=== PATIENT | male | born 1945 | race Caucasian/White ===

== ENCOUNTER 2016-11-06 18:09 | Inpatient (IN) ==
[2016-11-06] MEDS ORDERED: Aspirin 81 MG TAB.CHEW PO STA (18:24)
--- NOTE | 2016-11-06 18:24 | Emergency Department Note ---
Disposition Clinical Impression: Stroke Qualifiers: CVA mechanism: unspecified Qualified Code(s): I63.9 - Cerebral infarction, unspecified Disposition: Admitted As Inpatient Condition: Fair [facility] Care Provider[facility] - Forms: ED Satisfaction Letter General Adult HPI - General Chief complaint: ED Neuro Symptoms/Deficit Stated complaint: "rule out CVA" Time Seen by Provider: 11/06/16 18:14 Nursing Notes Reviewed: Yes Vital Signs Reviewed: Yes - Related Data Previous Rx's Medication Instructions Recorded Ciprofloxacin OPTH Soln 4 drop RIGHT EYE Q4HR #1 drops 11/09/14 [Ciprofloxacin Opth Soln] Allergies Allergy/AdvReac Type Severity Reaction Status Date / Time atorvastatin AdvReac Fatigued Verified 11/09/14 17:39 celecoxib [From Celebrex] AdvReac Heartburn Verified 11/09/14 17:39 simvastatin AdvReac Fatigued Verified 11/09/14 17:39 Past Medical History - Past Medical History Medical history: Reports: coronary artery disease, DVT, diabetes, hyperlipidemia , hypertension, myocardial infarction Surgical history: Reports: coronary bypass (CABG), other Psychiatric history: Reports: anxiety - Social History Smoking Status: Former smoker Smokeless Tobacco Status: No Alcohol use: Reports: none Drug use: Reports: none Course Vital Signs Temperature 98.0 F 11/06/16 18:11 Pulse Rate 60 11/06/16 18:11 Respiratory Rate 16 11/06/16 18:11 Blood Pressure 134/84 11/06/16 18:11 O2 Sat by Pulse Oximetry 98 11/06/16 18:11 Temperature 98.0 F 11/06/16 18:11 Pulse Rate 60 11/06/16 19:08 Respiratory Rate 16 11/06/16 19:08 Blood Pressure 164/79 11/06/16 19:08 O2 Sat by Pulse Oximetry 99 11/06/16 19:08 Oxygen Delivery Oxygen Delivery Room Air Medical Decision Making - MDM Narrative Medical decision making narrative: I examined this patient and my medical decision-making was reviewed with the Resident Physician. I agree with the documented findings, disposition and treatment plan as described except to the extent set forth below. Patient seen and evaluated with Dr. Azevedo on arrival from EMS from the [place]. He had 3 days of ataxia was seen at the [facility] and he get a CT scan which showed a possible stroke. He has had no history of stroke in the past no other focal neuro deficits he denies any headache or chest pain or shortness of breath. They did a full workup over there he just needs admission neurology and an MRI. When review his chart here speak to neurology and most likely admit. Start him on aspirin here. He is in agreement with plan. [address] [facility] shows normal-sized ventricles there is a subtle low density area in the anterior limb the left internal capsule which was not present on a previous CT they had there that was done on November he also noticed superimposed mild patchy hypodensity in the paraventricular white matter system but it has been there presently there is no signs of intracranial hemorrhage or other abnormalities. [facility] work [facility] the [facility] shows a white count of 9.9 H&H 35 hematocrit 41.4 and a platelet count of 173 urinalysis is negative. Troponins negative his electrolytes are unremarkable suffer glucose 136 PT PTT is drawn B and creatinines done as lactate is normal. 1923 hrs.: Spoke with neurology and they are happy to see the patient and consult with admission to hospitalist.
--- NOTE | 2016-11-06 19:02 | Emergency Department Note ---
Disposition Clinical Impression: Stroke Qualifiers: CVA mechanism: unspecified Qualified Code(s): I63.9 - Cerebral infarction, unspecified Disposition: Admitted As Inpatient Condition: Fair [facility]errals: [facility] [Primary Care Provider] - Forms: ED Satisfaction Letter General Adult HPI - General Chief complaint: ED Neuro Symptoms/Deficit Stated complaint: "rule out CVA" Time Seen by Provider: 11/06/16 18:14 Source: EMS Limitations: no limitations Nursing Notes Reviewed: Yes Vital Signs Reviewed: Yes - History of Present Illness HPI Narrative: Patient here for evaluation and further workup possible stroke. [facility] to abnormal CT scan showing subtle new low density in the anterior limb of the left internal capsule is suspicious for a small age indeterminate infarct. He has had subtle neurologic symptoms including dizziness that has been going on since Wednesday. He describes a feeling as if things are spinning and feeling unsteady. He has had intermittent vision problems and on exam has nystagmus with fast beating to the right. No other clinical focal focal neurologic findings. White count of 9.9. Hemoglobin 13.5. Platelets 173. Urinalysis unremarkable. Patient has a negative troponin as well as normal electrolytes and liver function. Lactic acid normal. Please see Dr. Angulo's note for further dictation of [facility] chart. Pain Scale: 0 - Related Data Previous Rx's Medication Instructions Recorded Ciprofloxacin OPTH Soln 4 drop RIGHT EYE Q4HR #1 drops 11/09/14 [Ciprofloxacin Opth Soln] Allergies Allergy/AdvReac Type Severity Reaction Status Date / Time atorvastatin AdvReac Fatigued Verified 11/09/14 17:39 celecoxib [From Celebrex] AdvReac Heartburn Verified 11/09/14 17:39 simvastatin AdvReac Fatigued Verified 11/09/14 17:39 All systems ED: reviewed and negative except as stated. Constitutional: Denies: fever, chills, weakness Eyes: Reports: vision change Cardiovascular: Denies: chest pain, palpitations Respiratory: Denies: cough, dyspnea Gastrointestinal: Denies: abdominal pain, nausea Musculoskeletal: Denies: back pain, neck pain Integumentary: Denies: rash, abrasion Neurological: Reports: abnormal gait, vertigo Psychiatric: Denies: anxiety, depression Endocrine: Denies: fatigue Hematological/Lymphatic: Denies: easy bleeding Past Medical History - Past Medical History Medical history: Reports: coronary artery disease, DVT, diabetes, hyperlipidemia , hypertension, myocardial infarction Surgical history: Reports: coronary bypass (CABG), other Psychiatric history: Reports: anxiety - Social History Smoking Status: Former smoker Smokeless Tobacco Status: No Alcohol use: Reports: none Drug use: Reports: none Physical Exam General appearance: NAD, conversant Eyes: anicteric sclerae, moist conjunctivae; PERRL HENT: Atraumatic; oropharynx clear with moist mucous membranes and no mucosal ulcerations Neck: Normal inspection; Trachea midline; FROM, supple Lungs: CTA, with normal respiratory effort and no intercostal retractions CV: RRR, no MRGs Abdomen: Soft, non-tender; no rebound or gaurding Extremities: No peripheral edema or extremity lymphadenopathy Skin: Normal temperature; no rash, ulcers or lesions Psych: Appropriate mood and affect Neuro: alert and oriented to person, place and time - General Limitations: no limitations General appearance: alert - Expanded Neurological Exam Patient oriented to: Present: person, place Speech: Present: fluid speech Cranial nerves: EOM function (II, III, IV, ): Abnormal Right (Nystagmus in the right eye that is lateral beating), facial sensation (V): Normal, facial palsy (VII): Normal, gag reflex (IX): Normal, spinal accessory function (XI): Normal, tongue deviation (XII): Normal Cerebellar function: finger to nose: Normal, heel to haider: Normal Motor strength - LUE: 5/5 Motor strength - RUE: 5/5 Motor strength - LLE: 5/5 Motor strength - RLE: 5/5 Sensory exam upper extremity: light touch: Normal Sensory exam lower extremity: light touch: Normal Coma Scale Eye Opening: Spontaneous Coma Scale Motor Response: Obeys Commands Coma Scale Verbal Response: Oriented Coma Scale Total: 15 - Psychiatric Psychiatric exam: Present: normal affect, normal mood - Skin Skin exam: Present: warm, dry, intact Course - Consultations Consultation #1: Discussed with Dr. De Leon. Patient can be further observed and worked up in our facility. Consultation #2: Discussed with Dr. Koroma. Patient accepted for admission. Vital Signs Temperature 98.0 F 11/06/16 18:11 Pulse Rate 60 11/06/16 18:11 Respiratory Rate 16 11/06/16 18:11 Blood Pressure 134/84 11/06/16 18:11 O2 Sat by Pulse Oximetry 98 11/06/16 18:11 Temperature 98.0 F 11/06/16 18:11 Pulse Rate 60 11/06/16 19:08 Respiratory Rate 16 11/06/16 19:08 Blood Pressure 164/79 11/06/16 19:08 O2 Sat by Pulse Oximetry 99 11/06/16 19:08 Oxygen Delivery Oxygen Delivery Room Air
[2016-11-06] MEDS: Gabapentin 300 MG CAPSULE PO SCH (23:30)
--- NOTE | 2016-11-06 23:49 | Internal Med History&Physical ---
<Richard Romero - Last Filed: 11/07/16 02:09> Date of Encounter: 11/07/16 Time of Encounter: 23:45 Assessment and Plan (1) Stroke Current visit: Yes Status: Acute 71 y/o male on wednesday had Dawkins's with four bouts of loose stools and one bout of self induced vomiting due to nausea with this had symptoms of dizziness described as unsteadiness on his feet and lightheadedness. Patient is a comes from the [place] CT scan shows subtle new low density in the anterior limb of the left internal capsule Neurological exam: Nystagmus with fast beating to the right, positive Romberg's test, decreased sensation to bilateral lower extremity EKG ventricularly paced rhythm with no changes to previous. Plan: Unable to obtain MRI due to pacemaker/AICD Aspirin, start rosuvastatin and aggronox PT/OT/speech consult Neurology consultation Echocardiogram, bilateral carotid Dopplers Patient has a history of atrial fibrillation on xeralto, if determined to cardioembolic stroke will need to change anticoagulation Qualifiers: CVA mechanism: unspecified Qualified Code(s): I63.9 - Cerebral infarction, unspecified (2) Systolic congestive heart failure Current visit: Yes Status: Acute Patient states he has history of 5 myocardial infarctions, ventricular tachycardia, atrial fibrillation States his last EF is 30%. Patient status post pacemaker/AICD Plan: Continue aspirin, start rosuvastatin, sotalol, Lasix, lisinopril, aldactone Qualifiers: Congestive heart failure chronicity: chronic Qualified Code(s): I50.22 - Chronic systolic (congestive) heart failure (3) Atrial fibrillation Current visit: Yes Status: Acute History of atrial fibrillation on xeralto and sotalol EKG shows ventricularly paced rhythm, rate controlled Plan: Continue xeralto, sotalol. May need to change anticoagulation if stroke determined to be cardioembolic. Qualifiers: Atrial fibrillation type: chronic Qualified Code(s): I48.2 - Chronic atrial fibrillation (4) Essential hypertension Current visit: Yes Status: Acute Controlled Continue home medication of lisinopril (5) DVT prophylaxis Current visit: Yes Status: Acute on xeralto for afib (6) Diabetes mellitus Current visit: Yes Status: Acute Patient states he is a history of diabetes mellitus. Unclear last hemoglobin A1c as [facility] Current glucose is 108. Plan cardiac ADA diet with low dose sliding scale insulin. Qualifiers: Diabetes mellitus type: type 2 Diabetes mellitus complication status: with unspecified complications Diabetes mellitus joint terminal attack controller insulin use: without chcf use Qualified Code(s): E11.8 - Type 2 diabetes mellitus with unspecified complications Internal Medicine - H&P: HPI Chief complaint: unsteadiness Admitted From: Home Plans for Post Hospital Care: Home History of present illness: Mr. Sinclair is a 71 year old male presents from [place] for evaluation of stroke. Patient's chief complaint is unsteadiness. Last Wednesday after eating Dawkins' s he had 4 bouts of diarrhea and one bout of self-induced nausea. During this time he developed symptoms of dizziness described as unsteady on feet, lightheadedness. Reports blurry vision on the right eye that started today and persists. Denies facial drooping, unilateral numbness, unilateral weakness, fall, passing out, trauma to the head. Patient denies chest pain, shortness of breath, fever, chills, loss of bowel or bladder function. Patient does not have these symptoms when sitting down but only with standing up and gait. At the [place] CT scan showed a subtle new low density in the anterior limb of the left internal capsule. In the ER patient was found to have nystagmus with fast beating to the right. Dr. Hilario was notified and patient is admitted for further evaluation. Past Med Surg Social Fam HX - Past Medical History Medical history: atrial fibrillation, coronary artery disease, DVT, diabetes, hyperlipidemia, hypertension, myocardial infarction (5) Psychiatric history: anxiety - Past Surgical History Surgical History: coronary bypass (CABG), other - Social History Smoking Status: Former smoker (Quit 20 years ago with [id number] history) Smokeless Tobacco Status: No Alcohol use: none Drug use: none Occupational status: retired Activity Level: Independent ambulation - Family History Mother Adopted: [place]: [place] Family Member Ethnicity: Non- Living Status: Age at : 79 Cause of : KIDNEY FAILURE Hx Family Cardiac Disorders: Yes (HTN) Hx Family Respiratory Disorders: No Hx Family Cancer: No Hx Family GI Disorders: No Hx Family Genitourinary Disorders: No Hx Family Endocrine Disorder: Yes (DM) Hx Family Musculoskeletal Disorders: No Hx Family Neuromuscular Disorders: No Hx Family Neurologic Disorders: Yes (CVA) Hx Family HEENT Disorders: No Hx Family Autoimmune Disorders: No Hx Family Reproductive Disorders: No Hx Family Psychosocial Disorders: No Hx Family Medical Disorders: No Father Living Status: Hx Family Cardiac Disorders: Yes (Heart disease coronary artery disease) Internal Medicine - H&P: Meds Aspirin [Lo-Dose Aspirin EC] 81 mg PO DAILY 11/06/16 [History] Cetirizine HCl [All Day Allergy] 10 mg PO DAILY 11/06/16 [History] Cholecalciferol (Vitamin D3) [Vitamin D] 2,000 unit PO DAILY 11/06/16 [History] Furosemide [Lasix] 40 mg PO DAILY 11/06/16 [History] Gabapentin [Neurontin] 600 mg PO QID 11/06/16 [History] Lidocaine [Lidocare] 1 patch TP Q12H 11/06/16 [History] Lisinopril 10 mg PO DAILY 11/06/16 [History] Lisinopril [Zestril] 10 mg PO DAILY 11/06/16 [History] Nitroglycerin [Nitrostat] 0.4 mg SL AD PRN 11/06/16 [History] Ondansetron HCl [Zofran] 4 mg PO TID PRN 11/06/16 [History] Oxycodone HCl/Acetaminophen [Percocet 5-325 mg Tablet] 1 tab PO Q6H PRN [History] Propylene Glycol/Peg 400 [Kro Lubricating Rlf 0.3-0.4%] 1 drop OP QID 11/06/16 [ History] Rivaroxaban [Xarelto] 20 mg PO DAILY 11/06/16 [History] Sotalol 180 mg PO BID 11/06/16 [History] Sotalol [Betapace] 80 mg PO Q12HR 11/06/16 [History] Spironolactone [Aldactone] 12.5 mg PO DAILY 11/06/16 [History] 3 Allergy/AdvReac Type Severity Reaction Status Date / Time atorvastatin AdvReac Fatigued Verified 11/09/14 17:39 celecoxib [From Celebrex] AdvReac Heartburn Verified 11/09/14 17:39 simvastatin AdvReac Fatigued Verified 11/09/14 17:39 All Systems PM: A 10-system review of systems was performed and is negative for pertinent findings except as documented above in the HPI. Review of systems: Constitutional: Denies fever, chills HEENT: Denies headache, vision changes, neck pain, sore throat, rhinorrhea Heart: Denies chest pain palpitations Lungs: Denies shortness of breath cough Abdomen: Reports lower abdominal soreness that is relieved by bowel movements, vomiting, diarrhea Back: Denies back pain Kidney: Denies dysuria, hematuria Skin: Denies open wounds or sores or rash Extremities: Lower extremity swelling, denies pain Neuro: Reports lower extremity neuropathy, denies tingling - Constitutional Vitals: Temp Pulse Resp BP Pulse Ox 97.9 F 60 16 144/76 96 11/06/16 22:58 11/06/16 22:58 11/06/16 22:58 11/06/16 22:58 11/06/16 22:58 - Other Additional findings: General: Pleasant, without distress HEENT: Head atraumatic, normocephalic, EOMI, PERRLA, neck nontender to palpation , absent Lymphadenopathy, Moist Mucous Membranes, Heart: Regular rate and rhythm with right second intercostal systolic murmur Lungs: Clear to auscultation bilaterally Abdomen: Soft nontender, nondistended positive bowel sounds Extremities: Absent pedal edema, Skin: Warm and dry Neuro: Cranial nerves II through XII intact except for nystagmus with right gaze , decreased sensation to touch and lower feet bilaterally strength upper and lower extremity 5/5, alert oriented 3, positive Romberg's test Vascular: Pedal and radial pulses 2 out of 4 Internal Med - H&P Results - Labs CBC & Chem 7: 11/07/16 00:39 11/07/16 00:39 <Tino Baker - Last Filed: 11/07/16 03:37> Date of Encounter: 11/06/16 Internal Medicine - H&P: HPI History of present illness: Mr. Sinclair is a 71 year old male All Systems PM: A 10-system review of systems was performed and is negative for pertinent findings except as documented above in the HPI. - Constitutional Vitals: Temp Pulse Resp BP Pulse Ox 98.1 F 59 16 106/64 95 11/07/16 02:52 11/07/16 02:52 11/07/16 02:52 11/07/16 02:52 11/07/16 02:52 Internal Med - H&P Results - Labs CBC & Chem 7: 11/07/16 00:39 11/07/16 00:39 Labs: Short CBC 11/07/16 Range/Units 00:39 WBC 8.4 (4.3-11.1) K/mcL Hgb 12.4 L (12.9-16.9) g/dL Hct 39.2 (37.5-50.1) % Plt Count 162 (140-400) K/mcL Neutrophils # 5.5 (1.6-8.9) K/mcL BMP 11/07/16 00:39 Sodium 137 Potassium 4.1 Chloride 102 Carbon Dioxide 27 BUN 17 Creatinine 0.81 Glucose 161 H Calcium 9.4 - Impressions reviewed non contrast head [facility] - Attending Attestation Date of encounter is 11/06/2016 and NOT 11/07/16 I personally interviewed and examined this patient and my medical decision- making was reviewed with the Resident Physician. I agree with the documented findings, disposition and treatment plan as described. Due to his ICD's incompatibility with MRI we will repeat the head CT 24 hours from the initial one. Tino Baker MD, MPH Hospitalist
[2016-11-07] MEDS ORDERED: Dextrose Gel 15 GM PO PRN ×2 (00:06)
[2016-11-07] MEDS ORDERED: D5% in Water 1,000 ML IVC PRN (00:06)
[2016-11-07] MEDS ORDERED: *HR* Dextrose 50 % in Water (Syg) 50 ML SYRINGE IVP PRN (00:06)
[2016-11-07 00:55] LABS: Basophils % 0.4 %; Eosinophils # 0.1 K/mcL (0.0-0.6); Eosinophils % 1.4 %; Hematocrit 39.2 % (37.5-50.1); Hemoglobin 12.4 g/dL (12.9-16.9); Immature Granulocytes % 0.5 % (0-4); Lymphocytes # 2.2 K/mcL (0.6-4.6); Lymphocytes % 26.1 %; Mean Corpuscular HGB Conc 31.6 g/dL (31.6-35.5); Mean Corpuscular Hemoglobin 28.4 pg (28.0-33.3); Mean Corpuscular Volume 89.7 fL (83.0-100.0); Mean Platelet Volume 9.7 fL (9.4-12.4); Monocytes # 0.5 K/mcL (0.0-1.3); Neutrophils # 5.5 K/mcL (1.6-8.9); Platelet Count 162 K/mcL (140-400); Red Blood Count 4.37 M/mcL (4.19-5.50); Red Cell Distribution Width 13.9 % (11.5-14.5); Segmented Neutrophils % 65.6 %
[2016-11-07 01:05] LABS: INR 1.3; Prothrombin Time 13.8 Seconds (9.4-12.1)
[2016-11-07 01:07] LABS: Hemoglobin A1C 5.8 %
[2016-11-07 01:08] LABS: Activated Partial Thrombo Time 28.3 Seconds (26.0-36.0)
[2016-11-07 01:09] LABS: BUN/Creatinine Ratio 21 (6-26); Blood Urea Nitrogen 17 mg/dL (8-26); Calcium 9.4 mg/dL (8.6-10.8); Carbon Dioxide 27 mEq/L (19-29); Chloride 102 mEq/L (98-109); Chol/HDL Ratio 4.9 (0-4.9); Cholesterol 173 mg/dL (< 200); Glucose 161 mg/dL (70-99); HDL Cholesterol 35 mg/dL (40-59); LDL Cholesterol,Calculated 94 mg/dL (0-99); Osmolality,Calculated 289 (280-300); Potassium 4.1 mEq/L (3.5-4.5); Sodium 137 mEq/L (136-145); Triglycerides 220 mg/dL (< 150); eGFR For African Americans > 60 (> 60); eGFR For Non-African Americans > 60 (> 60)
[2016-11-07] MEDS: Furosemide 40 MG TABLET PO SCH (08:13)
[2016-11-07] MEDS: Spironolactone 25 MG TABLET PO SCH (08:13)
[2016-11-07] MEDS: Gabapentin 300 MG CAPSULE PO SCH ×4 (08:15→21:20)
[2016-11-07] MEDS: *HR* Rivaroxaban 10 MG TABLET PO SCH (08:16)
[2016-11-07] MEDS: Insulin LISPRO 300 UNITS/3 ML VIAL SQ SCH ×3 (08:16→17:43)
[2016-11-07] MEDS ORDERED: Aspirin Enteric Coated 81 MG Tablet PO SCH (09:00)
--- NOTE | 2016-11-07 15:57 | Internal Med Progress Note ---
Date of Encounter: 11/07/16 Time of Encounter: 15:56 - Assessment and plan (1) Stroke Current Visit: Yes Status: Acute Qualifiers: CVA mechanism: unspecified Qualified Code(s): I63.9 - Cerebral infarction, unspecified (2) Atrial fibrillation Current Visit: Yes Status: Acute Qualifiers: Atrial fibrillation type: chronic Qualified Code(s): I48.2 - Chronic atrial fibrillation (3) Essential hypertension Current Visit: Yes Status: Acute (4) DVT prophylaxis Current Visit: Yes Status: Acute (5) Diabetes mellitus Current Visit: Yes Status: Acute Qualifiers: Diabetes mellitus type: type 2 Diabetes mellitus complication status: with unspecified complications Diabetes mellitus senior living insulin use: without senior living use Qualified Code(s): E11.8 - Type 2 diabetes mellitus with unspecified complications - Subjective Interval history: Mr. Sinclair is a 71 year old male presents from [place] for evaluation of stroke. Patient's chief complaint is unsteadiness. Last Wednesday after eating Dawkins' s he had 4 bouts of diarrhea and one bout of self-induced nausea. During this time he developed symptoms of dizziness described as unsteady on feet, lightheadedness. Reports blurry vision on the right eye that started today and persists. Denies facial drooping, unilateral numbness, unilateral weakness, fall, passing out, trauma to the head. Patient denies chest pain, shortness of breath, fever, chills, loss of bowel or bladder function. Patient does not have these symptoms when sitting down but only with standing up and gait[facility] scan showed a subtle new low density in the anterior limb of the left internal capsule. In the ER patient was found to have nystagmus with fast beating to the right. Dr. Hilario was notified and patient is admitted for further evaluation. Awaiting urology consult PTOT evaluation echocardiogram and ultrasound carotid results. - Constitutional Vitals: Temp Pulse Resp BP Pulse Ox 97.4 F L 60 15 130/72 97 11/07/16 15:33 11/07/16 15:33 11/07/16 15:33 11/07/16 15:33 11/07/16 15:33 - Head Head exam: Present: atraumatic, normocephalic - Eye Eye exam: Present: PERRL, conjuntiva pink, sclera anicteric Pupils: Present: PERRL - Neck Neck exam general surgery: Present: supple, trachea midline. Absent: lymphadenopathy - Respiratory Respiratory exam: Present: CTAB. Absent: accessory muscle use, rales, rhonchi, wheezes - Cardiovascular Cardiovascular exam: Present: RRR, +S1, +S2. Absent: diastolic murmur, gallop, rubs, systolic murmur - GI/Abdominal GI/Abdominal exam: Present: normal bowel sounds, soft, no peritoneal signs. Absent: distended, tenderness - Extremities Exam Extremities exam: Present: warm, radial pulses palpable and symmetrical. Absent : calf tenderness, cyanotic, pedal edema - Neurological Exam Neurological exam: Present: CN II-XII intact, oriented X3, no focal deficits. Absent: pronater drift, facial droop, speech deficit - Skin Skin exam: Present: dry, intact Internal Medicine: Result - Labs CBC & Chem 7: 11/07/16 00:39 11/07/16 00:39 Labs: Short CBC 11/07/16 Range/Units 00:39 WBC 8.4 (4.3-11.1) K/mcL Hgb 12.4 L (12.9-16.9) g/dL Hct 39.2 (37.5-50.1) % Plt Count 162 (140-400) K/mcL Neutrophils # 5.5 (1.6-8.9) K/mcL BMP 11/07/16 00:39 Sodium 137 Potassium 4.1 Chloride 102 Carbon Dioxide 27 BUN 17 Creatinine 0.81 Glucose 161 H Calcium 9.4 - ABG Interpretation ABG results: PT/INR, D-dimer PT 13.8 Seconds (9.4-12.1) H 11/07/16 00:39 Consult Discharge Plan - Plan [facility]errals: [facility] [Primary Care Provider] -
[2016-11-07] MEDS ORDERED: Insulin LISPRO 300 UNITS/3 ML VIAL SQ SCH (21:00)
[2016-11-08] MEDS: *HR* Rivaroxaban 10 MG TABLET PO SCH (08:58)
[2016-11-08] MEDS: Spironolactone 25 MG TABLET PO SCH (08:59)
[2016-11-08] MEDS: Insulin LISPRO 300 UNITS/3 ML VIAL SQ SCH ×3 (08:59→17:15)
[2016-11-08] MEDS: Furosemide 40 MG TABLET PO SCH (08:59)
[2016-11-08] MEDS: Gabapentin 300 MG CAPSULE PO SCH ×3 (08:59→17:14)
[2016-11-08] MEDS ORDERED: Perflutren Lipid Microsphere 1.3 ML in 0.9 % Sodium Chloride 8.7 ML IVP ONE (10:12)
--- NOTE | 2016-11-08 11:00 | Neurology - Consult Note ---
Date of Encounter: 11/08/16 Time of Encounter: 10:58 Assessment and Plan (1) TIA (transient ischemic attack) Current Visit: Yes Status: Acute I reviewed the CT of head personally and i did not notice obvious signs of lacunar infarct, which would be difficult to be visualize on CT of head if it is small or not fully developed. Considering the fact he already had symptoms more than 24 hours it is my opinion that this does not represent a new lacunar infarct and he currently has no focal neurological deficit. Acute infarct is less likely especially considering that he is currently anticoagulated with Xarelto. Agree with getting carotid artery duplex and echocardiography. Patient can not get MRI of brain due to pacer placement. if carotid artery duplex and echocardiography returns unremarkable i would recommend no further testing. Qualifiers: Transient cerebral ischemia type: unspecified Qualified Code(s): G45.9 - Transient cerebral ischemic attack, unspecified History of Present Illness Chief complaint: dizziness, balance diffiulty and visual changes HPI: Mr. Sinclair is a 71 year old male with PMH significant for HTN, atrial fibrillation, DM, who developed acute onset of dizziness, balance difficulty blurry vision after having recurrent diarrhea. Patient states that he ate at [employer] Wednesday night and after that he developed loose stool x4 and developed blurry vision both eyes and some balance difficulty. Was dizzy as well. He went to [place] two days ago and had CT of head which reported possible lacunar infarct at the left GB. Patient denies focal weakness. the visual difficulty improved a lot but he still feel little blurry when looking at mid ranged object. No tinntus. Had hip surgery september/2016 and has been having difficulty walking. Has been receiving PT at home and is eager to get back on PT. Past Med Surg Social Fam HX - Past Medical History Medical history: atrial fibrillation, coronary artery disease, DVT, diabetes, hyperlipidemia, hypertension, myocardial infarction (5) Psychiatric history: anxiety - Past Surgical History Surgical History: coronary bypass (CABG), other - Social History Smoking Status: Former smoker (Quit 20 years ago with 75-[id number] history) Smokeless Tobacco Status: No Alcohol use: none Drug use: none - Family History Mother Adopted: [place]: vanessa Family Member Ethnicity: Non- Living Status: Age at : 77 Cause of : KIDNEY FAILURE Hx Family Cardiac Disorders: Yes (HTN) Hx Family Respiratory Disorders: No Hx Family Cancer: No Hx Family GI Disorders: No Hx Family Genitourinary Disorders: No Hx Family Endocrine Disorder: Yes (DM) Hx Family Musculoskeletal Disorders: No Hx Family Neuromuscular Disorders: No Hx Family Neurologic Disorders: Yes (CVA) Hx Family HEENT Disorders: No Hx Family Autoimmune Disorders: No Hx Family Reproductive Disorders: No Hx Family Psychosocial Disorders: No Hx Family Medical Disorders: No Father Living Status: Hx Family Cardiac Disorders: Yes (Heart disease coronary artery disease) Medications and Allergies Aspirin [Lo-Dose Aspirin EC] 81 mg PO DAILY 11/06/16 [History] Cetirizine HCl [All Day Allergy] 10 mg PO DAILY 11/06/16 [History] Cholecalciferol (Vitamin D3) [Vitamin D] 2,000 unit PO DAILY 11/06/16 [History] Furosemide [Lasix] 40 mg PO DAILY 11/06/16 [History] Gabapentin [Neurontin] 600 mg PO QID 11/06/16 [History] Lidocaine [Lidocare] 1 patch TP Q12H 11/06/16 [History] Lisinopril 10 mg PO DAILY 11/06/16 [History] Lisinopril [Zestril] 10 mg PO DAILY 11/06/16 [History] Nitroglycerin [Nitrostat] 0.4 mg SL AD PRN 11/06/16 [History] Ondansetron HCl [Zofran] 4 mg PO TID PRN 11/06/16 [History] Oxycodone HCl/Acetaminophen [Percocet 5-325 mg Tablet] 1 tab PO Q6H PRN [History] Propylene Glycol/Peg 400 [Kro Lubricating Rlf 0.3-0.4%] 1 drop OP QID 11/06/16 [ History] Rivaroxaban [Xarelto] 20 mg PO DAILY 11/06/16 [History] Sotalol 180 mg PO BID 11/06/16 [History] Sotalol [Betapace] 80 mg PO Q12HR 11/06/16 [History] Spironolactone [Aldactone] 12.5 mg PO DAILY 11/06/16 [History] 3 Allergy/AdvReac Type Severity Reaction Status Date / Time atorvastatin AdvReac Fatigued Verified 11/09/14 17:39 celecoxib [From Celebrex] AdvReac Heartburn Verified 11/09/14 17:39 simvastatin AdvReac Fatigued Verified 11/09/14 17:39 All Systems: A 10-system review of systems was performed and is negative for pertinent findings except as documented above in the HPI. Physical Examination - Vital Signs Vital Signs: Initial Vital Signs Temp Pulse Resp BP Pulse Ox 98.0 F 60 16 134/84 98 11/06/16 18:11 11/06/16 18:11 11/06/16 18:11 11/06/16 18:11 11/06/16 18:11 - Constitutional General appearance: comfortable - Neurologic Sensorimotor examination: intact Detailed motor examination: grossly full strength in all extremities Motor examination - right side: 5/5: deltoids, biceps, triceps, wrist flexion, wrist extension, procedure rn, hip flexors, tibialis Anterior, quadriceps, toe extension (EHL), plantarflexion Motor examination - left side: 5/5: deltoids, biceps, triceps, wrist flexion, wrist extension, hip flexors, procedure rn, quadriceps, tibialis Anterior, toe extension (EHL), plantarflexion Detailed sensory examination: intact Posture: other Reflex and gait examination: other (Gait is abnormal in that he walks small steps to the right leg, due to hip problems. Able to walk without assisstance) Mental Status Examination: awake, alert, oriented to person, oriented to place, oriented to time, follows commands appropriately, answers questions appropriately, no agnosia, no aphasia, no aproxia Cranial nerve examination: PERRL, EOMI, visual powell intact, corneal reflexes brisk symmetrically, sensory to face intact, mastication intact, no facial asymmetry is present, no dysarthria, hearing is intact symmetrically, soft palate elevates bilaterally upon phonation, gag reflex intact, flexes SCM and trapezius muscles symmetrically with full power, tongue protrudes midline, no atrophy or facial fasiculations present Results - Laboratory Findings CBC and BMP: 11/07/16 00:39 11/07/16 00:39 Abnormal lab findings: Abnormal lab results Hgb 12.4 g/dL (12.9-16.9) L 11/07/16 00:39 PT 13.8 Seconds (9.4-12.1) H 11/07/16 00:39 Glucose 161 mg/dL (70-99) H 11/07/16 00:39 POC Glucose 145 (58-89) H 11/07/16 20:29 Hemoglobin A1c 5.8 % (-5.6) H 11/07/16 00:39 Triglycerides 220 mg/dL (< 150) H 11/07/16 00:39 VLDL Cholesterol, Calc 44 mg/dL (< 31) H 11/07/16 00:39 HDL Cholesterol 35 mg/dL (40-59) L 11/07/16 00:39 Consult Discharge Plan - Plan [facility]: [facility] [Primary Care Provider[facility] -
[2016-11-08 11:05] VITALS: BP 114/73
--- NOTE | 2016-11-08 15:26 | Discharge Summary ---
Date of Encounter: 11/08/16 Time of Encounter: 15:21 - Discharge Diagnosis (1) Stroke Priority: Primary Status: Acute Qualifiers: CVA mechanism: unspecified Qualified Code(s): I63.9 - Cerebral infarction, unspecified (2) Atrial fibrillation Priority: Secondary Status: Acute Qualifiers: Atrial fibrillation type: chronic Qualified Code(s): I48.2 - Chronic atrial fibrillation (3) Essential hypertension Priority: Secondary Status: Acute (4) Diabetes mellitus Priority: Secondary Status: Acute Qualifiers: Diabetes mellitus type: type 2 Diabetes mellitus complication status: with unspecified complications Diabetes mellitus dedicated intermodal truck driver insulin use: without mcc use Qualified Code(s): E11.8 - Type 2 diabetes mellitus with unspecified complications (5) DVT prophylaxis Priority: Secondary Status: Acute - Discharge Medications Prescriptions: Aspirin/Dipyridamole 25/200 MG [Aggrenox 25mg-200mg] 1 cap PO BID #30 Home Medications: Aspirin [Lo-Dose Aspirin EC] 81 mg PO DAILY 11/06/16 [History] Cetirizine HCl [All Day Allergy] 10 mg PO DAILY 11/06/16 [History] Cholecalciferol (Vitamin D3) [Vitamin D3] 2,000 unit PO DAILY 11/06/16 [History] Furosemide [Lasix] 40 mg PO DAILY 11/06/16 [History] Gabapentin [Neurontin] 600 mg PO QID 11/06/16 [History] Lidocaine [Lidocare] 1 patch TP Q12H 11/06/16 [History] Lisinopril 10 mg PO DAILY 11/06/16 [History] Lisinopril [Zestril] 10 mg PO DAILY 11/06/16 [History] Nitroglycerin [Nitrostat] 0.4 mg SL AD PRN 11/06/16 [History] Ondansetron HCl [Zofran] 4 mg PO TID PRN 11/06/16 [History] Oxycodone HCl/Acetaminophen [Percocet 5-325 mg Tablet] 1 tab PO Q6H PRN [History] Propylene Glycol/Peg 400 [Kro Lubricating Rlf 0.3-0.4%] 1 drop OP QID 11/06/16 [ History] Rivaroxaban [Xarelto] 20 mg PO DAILY 11/06/16 [History] Sotalol 180 mg PO BID 11/06/16 [History] Sotalol [Betapace] 80 mg PO Q12HR 11/06/16 [History] Spironolactone [Aldactone] 12.5 mg PO DAILY 11/06/16 [History] Aspirin/Dipyridamole 25/200 MG [Aggrenox 25mg-200mg] 1 cap PO BID #30 11/08/16 [Rx] Allergies/Adverse Reactions: 3 Allergy/AdvReac Type Severity Reaction Status Date / Time atorvastatin AdvReac Fatigued Verified 11/09/14 17:39 celecoxib [From Celebrex] AdvReac Heartburn Verified 11/09/14 17:39 simvastatin AdvReac Fatigued Verified 11/09/14 17:39 Procedures/tests Complete & Pending: Procedures Performed prior 72 hours Category Date Time Status CTA Head wo/w contrast [CT angio head wo/w con] [CT] Cat Scan 11/07/16 13:00 Completed Routine EV carotid duplex imaging BI Routine Y 11/08/16 00:04 Completed EV echocardiogram Routine Y 11/08/16 15:18 Ordered EV echocardiogram w enhance Routine Y 11/08/16 00:04 Completed Date of admission: 11/06/16 20:38 [facility] care physician: [facility] Consults: 11/06/16 22:47 Consult to Occupational Therapy [CONS] Routine Comment: Evaluate, develop and implement POC Reason for Consult: suspected stroke Consult to Physical Therapy [CONS] Routine Comment: Evaluate, develop and implement POC Reason for Consult: suspected stroke 11/06/16 22:48 Consult to Speech Therapy [CONS] Routine Comment: Evaluate, develop and implement POC Reason for Consult: suspected stroke Call Completed: No 11/07/16 15:53 Consult to Neurology [CONS] Routine Consulting Provider: [facility] Reason for Consult: CVA Time Notified: 15:54 Call Completed: No Discharging clinician: Dinah Montesinos Anticipated date of discharge: 11/08/16 - Patient Status Disposition: Home, Self-Care Condition: Fair Overall status at discharge: patient is progressing back to baseline - Discharge Instructions Follow Up With: [facility] [Primary Care Provider] - - Diet and Activity Activity: resume usual activities as tolerated Diet: advance to your usual diet, low fat, low cholesterol, low salt diet Hospital course: Mr. Sinclair is a 71 year old male presents from [place] for evaluation of stroke. Patient's chief complaint is unsteadiness. Last Wednesday after eating [employer] he had 4 bouts of diarrhea and one bout of self-induced nausea. During this time he developed symptoms of dizziness described as unsteady on feet, lightheadedness. Reports blurry vision on the right eye that started today and persists. Denies facial drooping, unilateral numbness, unilateral weakness, fall, passing out, trauma to the head. Patient denies chest pain, shortness of breath, fever, chills, loss of bowel or bladder function. Patient does not have these symptoms when sitting down but only with standing up and gait. [facility] scan showed a subtle new low density in the anterior limb of the left internal capsule. In the ER patient was found to have nystagmus with fast beating to the right. Dr. Hilario was notified and patient is admitted for further evaluation. A CTA was done and it did not show any stroke. We are awaiting echocardiogram and ultrasound carotid. Aggrenox will be added to the aspirin. Patient states that he is not on Xarelto anymore. Neurology recommends to let patient go home if US carotid is negative. - Time Spent with Patient Total time spent providing and/or coordinating discharge services: Greater than 30 minutes - Constitutional Vitals: Temp Pulse Resp BP Pulse Ox 97.5 F L 61 16 114/73 97 11/08/16 11:04 11/08/16 11:04 11/08/16 11:04 11/08/16 11:04 11/08/16 11:04 - Head Head exam: Present: atraumatic, normocephalic - Eye Eye exam: Present: PERRL, conjuntiva pink, sclera anicteric Pupils: Present: PERRL - Neck Neck exam general surgery: Present: supple, trachea midline. Absent: lymphadenopathy - Respiratory Respiratory exam: Present: CTAB. Absent: accessory muscle use, rales, rhonchi, wheezes - Cardiovascular Cardiovascular exam: Present: RRR, +S1, +S2. Absent: diastolic murmur, gallop, rubs, systolic murmur - GI/Abdominal GI/Abdominal exam: Present: normal bowel sounds, soft, no peritoneal signs. Absent: distended, tenderness - Extremities Exam Extremities exam: Present: warm, radial pulses palpable and symmetrical. Absent : calf tenderness, cyanotic, pedal edema - Neurological Exam Neurological exam: Present: CN II-XII intact, oriented X3, no focal deficits. Absent: pronater drift, facial droop, speech deficit - Skin Skin exam: Present: dry, intact
--- NOTE | 2016-11-09 07:06 | Carotid Imaging Report ---
Carotid Duplex Patient Name:Koffi Sinclair Order Number:[id number] Procedure Date:11/08/2016 Date:8Age:71 yrs Gender:Male Lt BP:124 / 66 mmHg Rt.BP:117 / 69 mmHgHeart Rate: Location:[facility] Room #: Fugitive Detective:Arlen Martinez Referring MD:Richard Romero DO head up operator helper:[facility] Dave MD:Romero Ferrer MD Primary Indications:stroke Risk Factors Yes/No Hypertension Yes Hypercholesterolemia Yes Diabetes Yes Hx of CAD/PTCA Yes Impressions: The bilateral carotid arteries have minimal plaque throughout. Recommendations: After imaging the patient returned to their room. Findings Carotid Duplex: Right: The right proximal common carotid artery has a PSV of 70 cm/s and a EDV of 13 cm/s. The right mid common carotid artery has a PSV of 62 cm/s and a EDV of 15 cm/s. The right distal common carotid artery has a PSV of 62 cm/s and a EDV of 13 cm/s. There is nonstenotic plaque in the right bifurcation with a PSV of 74 cm/s and a EDV of 16 cm/s. There is nonstenotic plaque in the right proximal internal carotid artery with a PSV of 74 cm/s and a EDV of 23 cm/s. The right mid internal carotid artery has a PSV of 83 cm/s and a EDV of 22 cm/s. The right distal internal carotid artery has a PSV of 90 cm/s and a EDV of 26 cm/s. The right eca has a PSV of 133 cm/s and a EDV of 10 cm/s. The right vertebral artery has a PSV of 64 cm/s and a EDV of 11 cm/s. Left: There is nonstenotic plaque in the left proximal common carotid artery with a PSV of 101 cm/s and a EDV of 17 cm/s. The left mid common carotid artery has a PSV of 93 cm/s and a EDV of 13 cm/s. The left distal common carotid artery has a PSV of 73 cm/s and a EDV of 14 cm/s. There is nonstenotic plaque in the left bifurcation with a PSV of 77 cm/s and a EDV of 15 cm/s. The left proximal internal carotid artery has a PSV of 87 cm/s and a EDV of 23 cm/s. The left mid internal carotid artery has a PSV of 93 cm/s and a EDV of 26 cm/s. The left distal internal carotid artery has a PSV of 91 cm/s and a EDV of 23 cm/s. The left eca has a PSV of 140 cm/s and a EDV of 13 cm/s. The left vertebral artery has a PSV of 54 cm/s and a EDV of 9 cm/s. Prior Study: No prior study available for comparison. Carotid Results Right PSV EDV Assessment Proximal CCA 70 13 Normal Mid CCA 62 15 Normal Distal CCA 62 13 Normal Bifurcation 74 16 Non Stenotic Plaque Proximal ICA 74 23 Non Stenotic Plaque Mid ICA 83 22 Normal Distal ICA 90 26 Normal ECA 133 10 Normal Vertebral Artery 64 11 Normal Left PSV EDV Assessment Proximal CCA 101 17 Non Stenotic Plaque Mid CCA 93 13 Normal Distal CCA 73 14 Normal Bifurcation 77 15 Non Stenotic Plaque Proximal ICA 87 23 Normal Mid ICA 93 26 Normal Distal ICA 91 23 Normal ECA 140 13 Normal Vertebral Artery 54 9 Normal Ratio's Right ICA/CCA Ratio: 1.45 ICA/CCA Values: 90/62 Left ICA/CCA Ratio: 1.00 ICA/CCA Values: 93/93 Updated by Romero Ferrer MD on 11/09/2016 6:59:40 AM electronically signed on 11/09/2016 6:59:54 AM with status of Final
== END 2016-11-08 19:02 | disposition home or self-care (01) | DRG 65 ==
LOC: EMEROO 18:09 → 3BNU 20:38
PROVIDERS: ADMIT Pediatrics; ATTEND Registered Nurse

== ENCOUNTER 2021-07-04 20:12 | Observation (INO) ==
[2021-07-04 20:51] LABS: Basophils % 0.5 %; Eosinophils # 0.2 K/mcL (0.0-0.6); Eosinophils % 2.3 %; Hematocrit 40.2 % (37.5-50.1); Hemoglobin 13.2 g/dL (12.9-16.9); Immature Granulocytes % 0.5 % (0-4); Lymphocytes # 1.5 K/mcL (0.6-4.6); Lymphocytes % 18.2 %; Mean Corpuscular HGB Conc 32.8 g/dL (31.6-35.5); Mean Corpuscular Hemoglobin 29.9 pg (28.0-33.3); Mean Corpuscular Volume 91.2 fL (83.0-100.0); Mean Platelet Volume 10.1 fL (9.4-12.4); Monocytes # 0.8 K/mcL (0.0-1.3); Monocytes % 8.9 %; Neutrophils # 5.8 K/mcL (1.6-8.9); Nucleated Red Blood Cells 0.2 /100 WBC (0); Platelet Count 148 K/mcL (140-400); Red Blood Count 4.41 M/mcL (4.19-5.50); Red Cell Distribution Width 15.8 % (11.5-14.5); Segmented Neutrophils % 69.6 %; White Blood Count 8.4 K/mcL (4.3-11.1)
[2021-07-04 21:13] LABS: BUN/Creatinine Ratio 31 (6-26); Blood Urea Nitrogen 40 mg/dL (8-23); Calcium 9.8 mg/dL (8.6-10.3); Carbon Dioxide 26 mEq/L (23-29); Chloride 102 mEq/L (98-107); Glucose 100 mg/dL (70-105); Osmolality,Calculated 296 (280-300); Potassium 4.5 mEq/L (3.5-5.1); Sodium 138 mEq/L (136-145); eGFR For African Americans > 60 (> 60); eGFR For Non-African Americans 54 (> 60)
[2021-07-04 21:16] LABS: Troponin I 0.07 ng/mL (< 0.04)
[2021-07-04 22:01] LABS: Magnesium 2.1 mg/dL (1.6-2.6); Thyroid Stimulating Hormone 1.461 mcIU/mL (0.340-5.600)
[2021-07-05] MEDS ORDERED: Naloxone 0.4 MG/ML INJ IVP PRN (01:41)
[2021-07-05] MEDS ORDERED: Melatonin 3 MG TABLET PO PRN (01:41)
[2021-07-05] MEDS ORDERED: Perflutren Lipid Microsphere 1.3 ML in 0.9 % Sodium Chloride 8.7 ML IVP PRN (02:28)
[2021-07-05] MEDS ORDERED: Furosemide 20 MG/2 ML VIAL IVP ONE (04:24)
[2021-07-05] MEDS ORDERED: *HR* Heparin 5,000 UNIT/ML VIAL IVP PRN ×2 (04:30)
[2021-07-05 04:47] LABS: Mean Corpuscular Volume 91.3 fL (83.0-100.0); Red Cell Distribution Width 15.9 % (11.5-14.5)
[2021-07-05 04:50] LABS: Hematocrit 40.1 % (37.5-50.1); Hemoglobin 13.1 g/dL (12.9-16.9); Immature Platelets 3.8 % (1.1-6.1); Mean Corpuscular HGB Conc 32.7 g/dL (31.6-35.5); Mean Corpuscular Hemoglobin 29.8 pg (28.0-33.3); Mean Platelet Volume 10.5 fL (9.4-12.4); Red Blood Count 4.39 M/mcL (4.19-5.50); White Blood Count 6.8 K/mcL (4.3-11.1)
[2021-07-05 04:55] LABS: INR 1.5; Prothrombin Time 16.2 Seconds (9.4-12.1)
[2021-07-05 04:58] LABS: Activated Partial Thrombo Time 36.3 Seconds (26.0-36.0)
[2021-07-05] MEDS: Heparin 25,000UNIT/250ML 1/2NS 25,000 UNIT/250 ML IV.SOLN IVC SCH ×2 (05:07→21:29)
[2021-07-05 05:08] LABS: Alanine Aminotransferase 19 Units/L (7-52); Albumin 4.1 g/dL (3.5-5.7); Albumin/Globulin Ratio 1.9 (1.1-2.2); Alkaline Phosphatase 37 Units/L (34-104); Aspartate Amino Transferase 17 Units/L (13-39); BUN/Creatinine Ratio 31 (6-26); Bilirubin,Total 0.7 mg/dL (0.3-1.0); Blood Urea Nitrogen 34 mg/dL (8-23); Calcium 9.4 mg/dL (8.6-10.3); Carbon Dioxide 27 mEq/L (23-29); Chloride 103 mEq/L (98-107); Chol/HDL Ratio 3.4 (0-4.9); Cholesterol 136 mg/dL (< 200); Globulin 2.2 g/dL (2.4-3.5); Glucose 130 mg/dL (70-105); HDL Cholesterol 40 mg/dL (40-59); LDL Cholesterol,Calculated 63 mg/dL (< 100); Osmolality,Calculated 295 (280-300); Phosphorous 3.9 mg/dL (2.7-4.5); Sodium 138 mEq/L (136-145); Total Protein 6.3 g/dL (6.4-8.9); Triglycerides 167 mg/dL (< 150); eGFR For African Americans > 60 (> 60); eGFR For Non-African Americans > 60 (> 60)
[2021-07-05 06:21] LABS: Estimated Average Glucose 140 mg/dl; Hemoglobin A1C 6.5 %
[2021-07-05] MEDS: Spironolactone 12.5 MG TABLET PO SCH (09:43)
[2021-07-05] MEDS: Metoprolol XL (24 HR) Succ 25 MG TAB.ER.24H PO SCH ×2 (09:43→21:27)
[2021-07-05] MEDS: lisinopriL 10 MG TABLET PO SCH (09:44)
[2021-07-05] MEDS: Aspirin 81 MG TAB.CHEW PO SCH (09:44)
[2021-07-05] MEDS: Multivit/Ca/Min/Fe/FA 1 TAB TABLET PO SCH (09:44)
[2021-07-05] MEDS ORDERED: Gabapentin 300 MG CAPSULE PO SCH (21:00)
[2021-07-06 00:58] LABS: BUN/Creatinine Ratio 23 (6-26); Blood Urea Nitrogen 24 mg/dL (8-23); Calcium 9.1 mg/dL (8.6-10.3); Carbon Dioxide 27 mEq/L (23-29); Chloride 105 mEq/L (98-107); Glucose 91 mg/dL (70-105); Osmolality,Calculated 294 (280-300); Potassium 4.2 mEq/L (3.5-5.1); Sodium 140 mEq/L (136-145); eGFR For African Americans > 60 (> 60); eGFR For Non-African Americans > 60 (> 60)
[2021-07-06 01:10] LABS: Basophils % 0.5 %; Eosinophils # 0.1 K/mcL (0.0-0.6); Eosinophils % 1.8 %; Hematocrit 39.1 % (37.5-50.1); Hemoglobin 12.8 g/dL (12.9-16.9); Immature Granulocytes % 0.5 % (0-4); Lymphocytes # 1.5 K/mcL (0.6-4.6); Lymphocytes % 19.8 %; Mean Corpuscular HGB Conc 32.7 g/dL (31.6-35.5); Mean Corpuscular Volume 91.8 fL (83.0-100.0); Mean Platelet Volume 10.4 fL (9.4-12.4); Monocytes # 0.6 K/mcL (0.0-1.3); Monocytes % 8.3 %; Neutrophils # 5.4 K/mcL (1.6-8.9); Platelet Count 117 K/mcL (140-400); Red Blood Count 4.26 M/mcL (4.19-5.50); Segmented Neutrophils % 69.1 %; White Blood Count 7.7 K/mcL (4.3-11.1)
[2021-07-06 07:50] LABS: INR 1.4; Prothrombin Time 15.9 Seconds (9.4-12.1)
[2021-07-06] MEDS: lisinopriL 10 MG TABLET PO SCH (09:02)
[2021-07-06] MEDS: Multivit/Ca/Min/Fe/FA 1 TAB TABLET PO SCH (09:02)
[2021-07-06] MEDS: Spironolactone 12.5 MG TABLET PO SCH (09:02)
[2021-07-06] MEDS: Metoprolol XL (24 HR) Succ 25 MG TAB.ER.24H PO SCH (09:02)
[2021-07-06] MEDS: Aspirin 81 MG TAB.CHEW PO SCH (09:02)
[2021-07-06 12:15] VITALS: BP 110/61; PULSE 73; TEMP 97.8; O2SAT 100
[2021-07-06] MEDS: Heparin 25,000UNIT/250ML 1/2NS 25,000 UNIT/250 ML IV.SOLN IVC SCH (12:51)
== END 2021-07-06 14:18 | disposition home or self-care (01) ==
LOC: 3BNU 20:12 → EMEROOARM 20:12 → SUATTDRO 07-05 00:51 → 3BNU 07-05 01:15
PROVIDERS: ADMIT Internal Medicine; ATTEND Internal Medicine

== ENCOUNTER 2021-07-08 19:38 | Observation (INO) ==
[2021-07-08 20:36] LABS: Eosinophils % 1.8 %; Mean Corpuscular HGB Conc 32.5 g/dL (31.6-35.5); Mean Corpuscular Volume 93.7 fL (83.0-100.0)
[2021-07-08 20:37] LABS: Basophils # 0.1 K/mcL (0.0-0.2); Basophils % 0.6 %; Eosinophils # 0.2 K/mcL (0.0-0.6); Hematocrit 41.8 % (37.5-50.1); Hemoglobin 13.6 g/dL (12.9-16.9); Immature Granulocytes % 0.5 % (0-4); Immature Platelets 4.6 % (1.1-6.1); Lymphocytes # 1.6 K/mcL (0.6-4.6); Lymphocytes % 16.8 %; Mean Corpuscular Hemoglobin 30.5 pg (28.0-33.3); Mean Platelet Volume 10.8 fL (9.4-12.4); Monocytes # 0.8 K/mcL (0.0-1.3); Monocytes % 8.4 %; Neutrophils # 6.7 K/mcL (1.6-8.9); Platelet Count 139 K/mcL (140-400); Red Blood Count 4.46 M/mcL (4.19-5.50); Red Cell Distribution Width 15.9 % (11.5-14.5); Segmented Neutrophils % 71.9 %; White Blood Count 9.3 K/mcL (4.3-11.1)
[2021-07-08 20:47] LABS: INR 1.4
[2021-07-08 20:54] LABS: Activated Partial Thrombo Time 32.8 Seconds (26.0-36.0)
[2021-07-08 21:00] LABS: BUN/Creatinine Ratio 37 (6-26); Blood Urea Nitrogen 16 mg/dL (8-23); Calcium 4.6 mg/dL (8.6-10.3); Carbon Dioxide 14 mEq/L (23-29); Chloride 124 mEq/L (98-107); Glucose 63 mg/dL (70-105); Osmolality,Calculated 295 (280-300); Potassium 2.7 mEq/L (3.5-5.1); Sodium 143 mEq/L (136-145); Troponin I 0.03 ng/mL (< 0.04); eGFR For African Americans > 60 (> 60); eGFR For Non-African Americans > 60 (> 60)
[2021-07-08] MEDS ORDERED: Calcium Gluconate 1,000 MG/10 ML VIAL IVP ONE (21:07)
[2021-07-08 21:16] LABS: Thyroid Stimulating Hormone 0.627 mcIU/mL (0.340-5.600)
[2021-07-08] MEDS ORDERED: Calcium Gluconate 1gm/50mL 1 GM/50 ML BAG IVPB ONE (21:30)
[2021-07-08 21:44] LABS: VBG Ionized Calcium 1.18 mmol/L (1.15-1.35)
[2021-07-08 23:12] LABS: Albumin 2.2 g/dL (3.5-5.7)
[2021-07-09] MEDS ORDERED: Calcium Gluconate 1gm/50mL 1 GM/50 ML BAG IVPB ONE (00:26)
[2021-07-09] MEDS ORDERED: Ondansetron 4 MG/2 ML VIAL IVP PRN (00:27)
[2021-07-09] MEDS ORDERED: Melatonin 3 MG TABLET PO PRN (00:27)
[2021-07-09] MEDS ORDERED: Naloxone 0.4 MG/ML INJ IVP PRN (00:27)
[2021-07-09 02:22] LABS: Hemoglobin 12.9 g/dL (12.9-16.9); Mean Platelet Volume 10.8 fL (9.4-12.4); White Blood Count 7.6 K/mcL (4.3-11.1)
[2021-07-09 02:24] LABS: Hematocrit 40.3 % (37.5-50.1); Immature Platelets 4.5 % (1.1-6.1); Mean Corpuscular Hemoglobin 29.5 pg (28.0-33.3); Mean Corpuscular Volume 92.2 fL (83.0-100.0); Red Blood Count 4.37 M/mcL (4.19-5.50)
[2021-07-09 03:22] VITALS: O2SAT 97
[2021-07-09 03:26] LABS: BUN/Creatinine Ratio 23 (6-26); Blood Urea Nitrogen 22 mg/dL (8-23); Calcium 9.3 mg/dL (8.6-10.3); Carbon Dioxide 25 mEq/L (23-29); Chloride 104 mEq/L (98-107); Glucose 99 mg/dL (70-105); Osmolality,Calculated 287 (280-300); Potassium 4.2 mEq/L (3.5-5.1); Sodium 137 mEq/L (136-145); eGFR For African Americans > 60 (> 60); eGFR For Non-African Americans > 60 (> 60)
[2021-07-09 04:12] LABS: Troponin I 0.05 ng/mL (< 0.04)
[2021-07-09 08:41] LABS: Potassium,Urine 23.2 mEq/L; Sodium, Urine 92.7 mEq/L
[2021-07-09 08:48] LABS: Bilirubin,Urine Negative (Negative); Blood,Urine Negative (Negative); Clarity,Urine Clear (Clear); Color,Urine Light-Yellow (Yellow); Glucose,Urine (UA) Normal (Normal); Ketones,Urine Trace mg/dL (Negative); Leukocyte Esterase,Urine Negative (Negative); Nitrite,Urine Negative (Negative); PH,Urine 6.5 pH Units (5.0-8.0); Protein,Urine Negative (Neg-Trace); Specific Gravity,Urine 1.012 (1.010-1.025); Urobilinogen,Urine Normal (Normal); WBC,Urine 0-3 per hpf (0-3)
[2021-07-09] MEDS ORDERED: Magnesium Oxide 400 MG TABLET PO SCH (09:00)
[2021-07-09] MEDS ORDERED: Spironolactone 12.5 MG TABLET PO SCH (09:00)
[2021-07-09] MEDS ORDERED: Aspirin Enteric Coated 81 MG Tablet PO SCH (09:00)
[2021-07-09] MEDS ORDERED: lisinopriL 10 MG TABLET PO SCH (09:00)
[2021-07-09 14:40] VITALS: BP 102/53; PULSE 71; TEMP 98.1
[2021-07-09] MEDS ORDERED: *HR* Rivaroxaban 10 MG TABLET PO SCH (17:00)
[2021-07-09] MEDS ORDERED: Gabapentin 300 MG CAPSULE PO SCH (21:00)
== END 2021-07-09 16:39 | disposition home or self-care (01) ==
LOC: EMEROOARM 19:38 → 3BNU 19:38 → SUATTDRO 23:18 → 3BNU 23:32
PROVIDERS: ADMIT Internal Medicine; ATTEND Internal Medicine

== ENCOUNTER 2021-08-01 07:20 | Inpatient (IN) ==
[2021-08-01] MEDS ORDERED: 0.9 % Sodium Chloride 1,000 ML ONE ×2 (07:34→08:45)
[2021-08-01] MEDS ORDERED: *HR* Heparin 10,000 UNIT/10 ML VIAL ONE (08:45)
[2021-08-01] MEDS ORDERED: Heparin 1,000 UNITS/500 mL 500 ML ONE (08:45)
[2021-08-01] MEDS ORDERED: ISOVUE-370 200 ML INFUS..BTL ONE (08:45)
[2021-08-01] MEDS ORDERED: Nitroglycerin 1,000 MCG/5 ML VIAL IV ONE (08:46)
[2021-08-01] MEDS ORDERED: *HR* FentaNYL (PF) 100 MCG/2 ML VIAL ONE (08:51)
[2021-08-01] MEDS ORDERED: *HR* Midazolam HCl 2 MG/2 ML VIAL ONE (08:51)
[2021-08-01] MEDS ORDERED: Artificial Tears SOLN 15 ML BOTTLE BOTH EYES PRN (16:41)
[2021-08-01] MEDS ORDERED: Nitroglycerin 0.4 MG TAB.SUBL SL PRN (16:41)
[2021-08-01] MEDS: *HR* Rivaroxaban 10 MG TABLET PO SCH (17:35)
[2021-08-01] MEDS: Ascorbic Acid 500 MG TABLET PO SCH (22:32)
[2021-08-01] MEDS: Gabapentin 300 MG CAPSULE PO SCH (22:32)
[2021-08-02 01:29] LABS: Immature Granulocytes % 0.4 % (0-4); Segmented Neutrophils % 65.2 %
[2021-08-02 01:31] LABS: Basophils % 0.6 %; Eosinophils # 0.1 K/mcL (0.0-0.6); Eosinophils % 2.3 %; Hematocrit 38.9 % (37.5-50.1); Hemoglobin 12.6 g/dL (12.9-16.9); Immature Platelets 3.7 % (1.1-6.1); Lymphocytes # 1.2 K/mcL (0.6-4.6); Lymphocytes % 23.2 %; Mean Corpuscular HGB Conc 32.4 g/dL (31.6-35.5); Mean Corpuscular Hemoglobin 31.2 pg (28.0-33.3); Mean Corpuscular Volume 96.3 fL (83.0-100.0); Mean Platelet Volume 10.6 fL (9.4-12.4); Monocytes # 0.4 K/mcL (0.0-1.3); Monocytes % 8.3 %; Neutrophils # 3.5 K/mcL (1.6-8.9); Platelet Count 108 K/mcL (140-400); Red Blood Count 4.04 M/mcL (4.19-5.50); Red Cell Distribution Width 15.9 % (11.5-14.5); White Blood Count 5.3 K/mcL (4.3-11.1)
[2021-08-02 01:48] LABS: BUN/Creatinine Ratio 25 (6-26); Blood Urea Nitrogen 21 mg/dL (8-23); Calcium 8.8 mg/dL (8.6-10.3); Carbon Dioxide 26 mEq/L (23-29); Chloride 106 mEq/L (98-107); Glucose 92 mg/dL (70-105); Osmolality,Calculated 291 (280-300); Potassium 4.2 mEq/L (3.5-5.1); Sodium 139 mEq/L (136-145); eGFR For African Americans > 60 (> 60); eGFR For Non-African Americans > 60 (> 60)
[2021-08-02] MEDS: Famotidine 20 MG TABLET PO SCH (08:16)
[2021-08-02] MEDS: Metoprolol XL (24 HR) Succ 25 MG TAB.ER.24H PO SCH (08:16)
[2021-08-02] MEDS: Cholecalciferol (D-3) 1,000 UNIT (25MCG) TABLET PO SCH (08:16)
[2021-08-02] MEDS: Multivit/Ca/Min/Fe/FA 1 TAB TABLET PO SCH (08:16)
[2021-08-02] MEDS: Furosemide 40 MG TABLET PO SCH (08:16)
[2021-08-02] MEDS: Ascorbic Acid 500 MG TABLET PO SCH ×2 (08:16→20:03)
[2021-08-02] MEDS: Magnesium Oxide 400 MG TABLET PO SCH (08:16)
[2021-08-02] MEDS: Spironolactone 12.5 MG TABLET PO SCH (08:16)
[2021-08-02] MEDS: Aspirin Enteric Coated 81 MG Tablet PO SCH (08:16)
[2021-08-02] MEDS: Gabapentin 300 MG CAPSULE PO SCH ×3 (08:16→20:03)
[2021-08-02] MEDS: Psyllium 1 PACKET POWD.PACK PO SCH (08:17)
[2021-08-02] MEDS: lisinopriL 10 MG TABLET PO SCH (08:17)
[2021-08-02] MEDS ORDERED: NON-FORMULARY MEDICATION 1 EACH EACH (Ubidecarenone [Coq10] 50 MG Tab.Chew) PO SCH (09:00)
[2021-08-02] MEDS ORDERED: FLAXSEED OIL PO SCH (09:00)
[2021-08-02] MEDS ORDERED: GARLIC 1 MG PO SCH (09:00)
[2021-08-02] MEDS: Dapagliflozin Propanediol [Farxiga] 10 MG Tablet PO SCH (09:30)
[2021-08-02] MEDS: *HR* Rivaroxaban 10 MG TABLET PO SCH (17:42)
[2021-08-03] MEDS: Spironolactone 12.5 MG TABLET PO SCH (08:47)
[2021-08-03] MEDS: Multivit/Ca/Min/Fe/FA 1 TAB TABLET PO SCH (08:47)
[2021-08-03] MEDS: Magnesium Oxide 400 MG TABLET PO SCH (08:47)
[2021-08-03] MEDS: Dapagliflozin Propanediol [Farxiga] 10 MG Tablet PO SCH (08:47)
[2021-08-03] MEDS: Cholecalciferol (D-3) 1,000 UNIT (25MCG) TABLET PO SCH (08:47)
[2021-08-03] MEDS: Famotidine 20 MG TABLET PO SCH (08:47)
[2021-08-03] MEDS: Psyllium 1 PACKET POWD.PACK PO SCH (08:48)
[2021-08-03] MEDS: Metoprolol XL (24 HR) Succ 25 MG TAB.ER.24H PO SCH (08:48)
[2021-08-03] MEDS: Furosemide 40 MG TABLET PO SCH (08:48)
[2021-08-03] MEDS: Ascorbic Acid 500 MG TABLET PO SCH ×2 (08:48→21:45)
[2021-08-03] MEDS: lisinopriL 10 MG TABLET PO SCH (08:48)
[2021-08-03] MEDS: Gabapentin 300 MG CAPSULE PO SCH ×2 (08:48→21:45)
[2021-08-03] MEDS: Aspirin Enteric Coated 81 MG Tablet PO SCH (08:48)
[2021-08-03] MEDS: *HR* Rivaroxaban 10 MG TABLET PO SCH (17:36)
[2021-08-04 02:17] LABS: Basophils % 0.6 %
[2021-08-04 02:19] LABS: Eosinophils # 0.1 K/mcL (0.0-0.6); Eosinophils % 1.5 %; Hemoglobin 12.4 g/dL (12.9-16.9); Immature Granulocytes % 0.3 % (0-4); Immature Platelets 3.9 % (1.1-6.1); Lymphocytes # 1.6 K/mcL (0.6-4.6); Lymphocytes % 23.6 %; Mean Corpuscular HGB Conc 32.6 g/dL (31.6-35.5); Mean Corpuscular Hemoglobin 31.2 pg (28.0-33.3); Mean Corpuscular Volume 95.5 fL (83.0-100.0); Mean Platelet Volume 10.4 fL (9.4-12.4); Monocytes # 0.6 K/mcL (0.0-1.3); Monocytes % 9.5 %; Neutrophils # 4.3 K/mcL (1.6-8.9); Platelet Count 126 K/mcL (140-400); Red Blood Count 3.98 M/mcL (4.19-5.50); Red Cell Distribution Width 15.6 % (11.5-14.5); Segmented Neutrophils % 64.5 %; White Blood Count 6.6 K/mcL (4.3-11.1)
[2021-08-04 02:35] LABS: BUN/Creatinine Ratio 21 (6-26); Blood Urea Nitrogen 27 mg/dL (8-23); Calcium 8.9 mg/dL (8.6-10.3); Carbon Dioxide 27 mEq/L (23-29); Chloride 104 mEq/L (98-107); Glucose 130 mg/dL (70-105); Osmolality,Calculated 291 (280-300); Potassium 4.6 mEq/L (3.5-5.1); Sodium 137 mEq/L (136-145); eGFR For African Americans > 60 (> 60); eGFR For Non-African Americans 55 (> 60)
[2021-08-04] MEDS: Spironolactone 12.5 MG TABLET PO SCH (08:29)
[2021-08-04] MEDS: Multivit/Ca/Min/Fe/FA 1 TAB TABLET PO SCH (08:29)
[2021-08-04] MEDS: Ascorbic Acid 500 MG TABLET PO SCH ×2 (08:30→20:56)
[2021-08-04] MEDS: Cholecalciferol (D-3) 1,000 UNIT (25MCG) TABLET PO SCH (08:30)
[2021-08-04] MEDS: Metoprolol XL (24 HR) Succ 25 MG TAB.ER.24H PO SCH (08:30)
[2021-08-04] MEDS: Magnesium Oxide 400 MG TABLET PO SCH (08:30)
[2021-08-04] MEDS: lisinopriL 10 MG TABLET PO SCH (08:31)
[2021-08-04] MEDS: Famotidine 20 MG TABLET PO SCH (08:31)
[2021-08-04] MEDS: Psyllium 1 PACKET POWD.PACK PO SCH (08:32)
[2021-08-04] MEDS: Aspirin Enteric Coated 81 MG Tablet PO SCH (08:32)
[2021-08-04] MEDS: Furosemide 40 MG TABLET PO SCH (08:32)
[2021-08-04] MEDS: Dapagliflozin Propanediol [Farxiga] 10 MG Tablet PO SCH (08:33)
[2021-08-04] MEDS: Gabapentin 300 MG CAPSULE PO SCH ×2 (08:34→20:55)
[2021-08-04 11:31] LABS: Heparin anti-factor XA UFH 0.41 IU/mL (0.30-0.70); INR 1.5; Prothrombin Time 16.9 Seconds (9.4-12.1)
[2021-08-04] MEDS ORDERED: *HR* Heparin 5,000 UNIT/ML VIAL IVP ONE (17:00)
[2021-08-04] MEDS ORDERED: Heparin 25,000UNIT/250ML 1/2NS 25,000 UNIT/250 ML IV.SOLN IVC SCH (17:00)
[2021-08-04] MEDS ORDERED: *HR* Heparin 5,000 UNIT/ML VIAL IVP PRN ×2 (17:00)
[2021-08-04] MEDS: Heparin 25,000UNIT/250ML 1/2NS 25,000 UNIT/250 ML IV.SOLN IVC SCH (17:03)
[2021-08-05 01:23] LABS: Basophils % 0.4 %; Eosinophils % 1.6 %; Mean Corpuscular Hemoglobin 31.4 pg (28.0-33.3)
[2021-08-05 01:25] LABS: Eosinophils # 0.1 K/mcL (0.0-0.6); Hematocrit 40.5 % (37.5-50.1); Hemoglobin 13.3 g/dL (12.9-16.9); Immature Granulocytes % 0.3 % (0-4); Immature Platelets 4.2 % (1.1-6.1); Lymphocytes # 1.9 K/mcL (0.6-4.6); Lymphocytes % 27.3 %; Mean Corpuscular HGB Conc 32.8 g/dL (31.6-35.5); Mean Corpuscular Volume 95.5 fL (83.0-100.0); Monocytes # 0.5 K/mcL (0.0-1.3); Platelet Count 117 K/mcL (140-400); Red Blood Count 4.24 M/mcL (4.19-5.50); Red Cell Distribution Width 15.7 % (11.5-14.5); Segmented Neutrophils % 63.4 %; White Blood Count 6.9 K/mcL (4.3-11.1)
[2021-08-05 01:26] LABS: Neutrophils # 4.4 K/mcL (1.6-8.9)
[2021-08-05 01:40] LABS: BUN/Creatinine Ratio 21 (6-26); Blood Urea Nitrogen 29 mg/dL (8-23); Calcium 9.1 mg/dL (8.6-10.3); Carbon Dioxide 25 mEq/L (23-29); Chloride 103 mEq/L (98-107); Glucose 100 mg/dL (70-105); Osmolality,Calculated 294 (280-300); Potassium 4.5 mEq/L (3.5-5.1); Sodium 139 mEq/L (136-145); eGFR For African Americans > 60 (> 60); eGFR For Non-African Americans 50 (> 60)
[2021-08-05] MEDS: lisinopriL 10 MG TABLET PO SCH (07:27)
[2021-08-05] MEDS: Metoprolol XL (24 HR) Succ 25 MG TAB.ER.24H PO SCH (07:27)
[2021-08-05] MEDS: Cholecalciferol (D-3) 1,000 UNIT (25MCG) TABLET PO SCH (07:27)
[2021-08-05] MEDS: Spironolactone 12.5 MG TABLET PO SCH (07:27)
[2021-08-05] MEDS: Aspirin Enteric Coated 81 MG Tablet PO SCH (07:28)
[2021-08-05] MEDS: Magnesium Oxide 400 MG TABLET PO SCH (07:28)
[2021-08-05] MEDS: Ascorbic Acid 500 MG TABLET PO SCH ×2 (07:28→20:33)
[2021-08-05] MEDS: Furosemide 40 MG TABLET PO SCH (07:28)
[2021-08-05] MEDS: Multivit/Ca/Min/Fe/FA 1 TAB TABLET PO SCH (07:28)
[2021-08-05] MEDS: Famotidine 20 MG TABLET PO SCH (07:28)
[2021-08-05] MEDS: Gabapentin 300 MG CAPSULE PO SCH ×2 (07:31→20:34)
[2021-08-05] MEDS: Dapagliflozin Propanediol [Farxiga] 10 MG Tablet PO SCH (07:31)
[2021-08-05] MEDS: Psyllium 1 PACKET POWD.PACK PO SCH (07:31)
[2021-08-05] MEDS: Heparin 25,000UNIT/250ML 1/2NS 25,000 UNIT/250 ML IV.SOLN IVC SCH (08:02)
[2021-08-05] MEDS ORDERED: *HR* Midazolam HCl 2 MG/2 ML VIAL ONE ×2 (14:10→15:15)
[2021-08-05] MEDS ORDERED: *HR* FentaNYL (PF) 100 MCG/2 ML VIAL ONE ×2 (14:10→15:15)
[2021-08-05] MEDS ORDERED: *HR* Heparin 10,000 UNIT/10 ML VIAL ONE (14:11)
[2021-08-05] MEDS ORDERED: ISOVUE-370 200 ML INFUS..BTL ONE (14:11)
[2021-08-05] MEDS ORDERED: 0.9 % Sodium Chloride 2,000 ML ONE (14:11)
[2021-08-05] MEDS ORDERED: Heparin 1,000 UNITS/500 mL 1,000 ML ONE ×2 (14:11→16:08)
[2021-08-05] MEDS ORDERED: Nitroglycerin 1,000 MCG/5 ML VIAL IV ONE (14:11)
[2021-08-05] MEDS ORDERED: D5% in Water 1,000 ML IVC ONE (14:20)
[2021-08-05] MEDS ORDERED: 0.9 % Sodium Chloride 1,000 ML ONE (14:45)
[2021-08-05] MEDS: 0.9 % Sodium Chloride 1,000 ML IVC SCH (21:14)
[2021-08-06 05:26] LABS: Basophils % 0.4 %; Hemoglobin 12.4 g/dL (12.9-16.9); Immature Granulocytes % 0.4 % (0-4); Red Cell Distribution Width 15.8 % (11.5-14.5)
[2021-08-06 05:28] LABS: Eosinophils # 0.1 K/mcL (0.0-0.6); Hematocrit 37.3 % (37.5-50.1); Immature Platelets 4.2 % (1.1-6.1); Lymphocytes # 0.9 K/mcL (0.6-4.6); Lymphocytes % 13.4 %; Mean Corpuscular HGB Conc 33.2 g/dL (31.6-35.5); Mean Corpuscular Hemoglobin 31.5 pg (28.0-33.3); Mean Corpuscular Volume 94.7 fL (83.0-100.0); Mean Platelet Volume 10.6 fL (9.4-12.4); Monocytes # 0.7 K/mcL (0.0-1.3); Monocytes % 9.4 %; Neutrophils # 5.2 K/mcL (1.6-8.9); Platelet Count 111 K/mcL (140-400); Red Blood Count 3.94 M/mcL (4.19-5.50); Segmented Neutrophils % 75.4 %; White Blood Count 6.9 K/mcL (4.3-11.1)
[2021-08-06 05:41] LABS: BUN/Creatinine Ratio 21 (6-26); Blood Urea Nitrogen 23 mg/dL (8-23); Calcium 8.5 mg/dL (8.6-10.3); Carbon Dioxide 28 mEq/L (23-29); Chloride 105 mEq/L (98-107); Glucose 107 mg/dL (70-105); Osmolality,Calculated 290 (280-300); Potassium 4.2 mEq/L (3.5-5.1); Sodium 138 mEq/L (136-145); eGFR For African Americans > 60 (> 60); eGFR For Non-African Americans > 60 (> 60)
[2021-08-06] MEDS: Heparin 25,000UNIT/250ML 1/2NS 25,000 UNIT/250 ML IV.SOLN IVC SCH (06:03)
[2021-08-06] MEDS: 0.9 % Sodium Chloride 1,000 ML IVC SCH (06:10)
[2021-08-06] MEDS: Metoprolol XL (24 HR) Succ 25 MG TAB.ER.24H PO SCH (08:14)
[2021-08-06] MEDS: Multivit/Ca/Min/Fe/FA 1 TAB TABLET PO SCH (08:14)
[2021-08-06] MEDS: Cholecalciferol (D-3) 1,000 UNIT (25MCG) TABLET PO SCH (08:14)
[2021-08-06] MEDS: Aspirin Enteric Coated 81 MG Tablet PO SCH (08:15)
[2021-08-06] MEDS: Ascorbic Acid 500 MG TABLET PO SCH (08:15)
[2021-08-06] MEDS: Magnesium Oxide 400 MG TABLET PO SCH (08:15)
[2021-08-06] MEDS: Spironolactone 12.5 MG TABLET PO SCH (08:15)
[2021-08-06] MEDS: lisinopriL 10 MG TABLET PO SCH (08:15)
[2021-08-06] MEDS: Famotidine 20 MG TABLET PO SCH (08:15)
[2021-08-06] MEDS: Furosemide 40 MG TABLET PO SCH (08:15)
[2021-08-06] MEDS: Psyllium 1 PACKET POWD.PACK PO SCH (08:16)
[2021-08-06] MEDS: Gabapentin 300 MG CAPSULE PO SCH (08:17)
[2021-08-06 11:08] VITALS: PULSE 60
[2021-08-06 13:15] VITALS: TEMP 99.2
[2021-08-06 15:40] VITALS: BP 114/59; O2SAT 97
[2021-08-06] MEDS ORDERED: *HR* Rivaroxaban 10 MG TABLET PO SCH (17:00)
== END 2021-08-06 16:15 | disposition home or self-care (01) | DRG 217 ==
LOC: INVDIALAB 07:20 → 3BNU 10:37 → ICNU 08-05 18:36
PROVIDERS: ADMIT Internal Medicine Cardiovascular Disease; ATTEND Internal Medicine Cardiovascular Disease

== ENCOUNTER 2021-08-26 06:07 | Inpatient (IN) ==
[2021-08-26] MEDS ORDERED: 0.9 % Sodium Chloride 1,000 ML ONE (06:52)
[2021-08-26] MEDS ORDERED: 0.9 % Sodium Chloride 250 ML ONE (06:52)
[2021-08-26] MEDS ORDERED: D5% in Water 100 ML ONE (06:52)
[2021-08-26] MEDS ORDERED: Vancomycin 1,000 MG VIAL ONE (06:52)
[2021-08-26] MEDS ORDERED: ceFAZolin 2,000 MG in Water for inj. (sterile) 20 ML IVP ONE (07:16)
[2021-08-26] MEDS ORDERED: Vancomycin (wt based) 1,000 MG VIAL IVPB ONE (07:17)
[2021-08-26] MEDS ORDERED: *HR* Norepinephrine 4 MG/4 ML VIAL IVC ONE (07:17)
[2021-08-26] MEDS ORDERED: Protamine Sulfate 50 MG/5 ML VIAL IVP ONE (07:18)
[2021-08-26] MEDS ORDERED: 0.9 % Sodium Chloride 2,000 ML ONE (07:18)
[2021-08-26] MEDS ORDERED: *HR* Heparin 10,000 UNIT/10 ML VIAL ONE (07:18)
[2021-08-26] MEDS ORDERED: Heparin 1,000 UNITS/500 mL 2,000 ML ONE (07:18)
[2021-08-26] MEDS ORDERED: ISOVUE-370 200 ML INFUS..BTL ONE (07:18)
[2021-08-26] MEDS ORDERED: *HR* FentaNYL (PF) 100 MCG/2 ML VIAL ONE (07:25)
[2021-08-26] MEDS ORDERED: *HR* Midazolam HCl 2 MG/2 ML VIAL ONE (07:26)
[2021-08-26 07:32] LABS: INR 1.3
[2021-08-26] MEDS ORDERED: Heparin 15,000 UNIT in 0.9 % Sodium Chloride 500 ML IV ONE (07:45)
[2021-08-26] MEDS ORDERED: Norepinephrine 4 MG in 0.9 % Sodium Chloride 250 ML IVC PRN (07:45)
[2021-08-26] MEDS ORDERED: del Nido Cardioplegia Solution PF ONE ×2 (08:00)
[2021-08-26] MEDS ORDERED: Buckersberg's Blood Cardioplegia PF ONE (08:00)
[2021-08-26] MEDS ORDERED: Perflutren Lipid Microsphere 1.3 ML in 0.9 % Sodium Chloride 8.7 ML IVP PRN (09:27)
[2021-08-26] MEDS ORDERED: D5% in Water 1,000 ML IVC PRN (10:44)
[2021-08-26] MEDS ORDERED: Dextrose Gel 15 GM/37.5 ML TUBE PO PRN ×2 (10:44)
[2021-08-26] MEDS ORDERED: *HR* Dextrose 50 % in Water (Syg) 50 ML SYRINGE IVP PRN (10:44)
[2021-08-26] MEDS: Acetaminophen 325 MG TABLET PO PRN ×2 (10:49→23:56)
[2021-08-26] MEDS: Insulin LISPRO 300 UNITS/3 ML VIAL SUBQ SCH ×2 (12:47→16:31)
[2021-08-26] MEDS ORDERED: *HR* Propofol 200 MG/20 ML VIAL IVP ONE (13:39)
[2021-08-26] MEDS ORDERED: *HR* Phenylephrine 10 MG/ML VIAL IVC ONE (13:39)
[2021-08-26] MEDS ORDERED: Ondansetron 4 MG/2 ML VIAL IVP ONE (13:39)
[2021-08-26] MEDS ORDERED: *HR* Propofol 500 MG/50 ML BOTTLE IVP ONE (13:39)
[2021-08-26] MEDS: Gabapentin 300 MG CAPSULE PO SCH (20:00)
[2021-08-26] MEDS ORDERED: Insulin LISPRO 300 UNITS/3 ML VIAL SUBQ SCH (21:00)
[2021-08-27 02:05] LABS: Basophils % 0.1 %; Hemoglobin 12.1 g/dL (12.9-16.9); Mean Corpuscular Hemoglobin 31.3 pg (28.0-33.3); Red Cell Distribution Width 14.9 % (11.5-14.5)
[2021-08-27 02:07] LABS: Hematocrit 37.7 % (37.5-50.1); Immature Granulocytes % 0.4 % (0-4); Lymphocytes # 0.6 K/mcL (0.6-4.6); Lymphocytes % 5.9 %; Mean Corpuscular HGB Conc 32.1 g/dL (31.6-35.5); Mean Corpuscular Volume 97.7 fL (83.0-100.0); Mean Platelet Volume 10.9 fL (9.4-12.4); Monocytes # 0.5 K/mcL (0.0-1.3); Monocytes % 5.3 %; Platelet Count 111 K/mcL (140-400); Red Blood Count 3.86 M/mcL (4.19-5.50); Segmented Neutrophils % 88.3 %; White Blood Count 10.1 K/mcL (4.3-11.1)
[2021-08-27 02:08] LABS: Neutrophils # 8.9 K/mcL (1.6-8.9)
[2021-08-27 02:13] LABS: INR 1.3; Prothrombin Time 14.4 Seconds (9.4-12.1)
[2021-08-27 02:23] LABS: BUN/Creatinine Ratio 31 (6-26); Blood Urea Nitrogen 29 mg/dL (8-23); Calcium 8.8 mg/dL (8.6-10.3); Carbon Dioxide 24 mEq/L (23-29); Chloride 108 mEq/L (98-107); Glucose 164 mg/dL (70-105); Osmolality,Calculated 299 (280-300); Potassium 4.1 mEq/L (3.5-5.1); Sodium 140 mEq/L (136-145); eGFR For African Americans > 60 (> 60); eGFR For Non-African Americans > 60 (> 60)
[2021-08-27 07:45] VITALS: TEMP 97.9
[2021-08-27] MEDS: Insulin LISPRO 300 UNITS/3 ML VIAL SUBQ SCH (08:44)
[2021-08-27] MEDS: Gabapentin 300 MG CAPSULE PO SCH (08:46)
[2021-08-27] MEDS ORDERED: Metoprolol XL (24 HR) Succ 25 MG TAB.ER.24H PO SCH (09:00)
[2021-08-27] MEDS ORDERED: Spironolactone 12.5 MG TABLET PO SCH (09:00)
[2021-08-27] MEDS ORDERED: Furosemide 40 MG TABLET PO SCH (09:00)
[2021-08-27] MEDS ORDERED: lisinopriL 10 MG TABLET PO SCH (09:00)
[2021-08-27] MEDS ORDERED: Metoprolol XL (24 HR) Succ 50 MG TAB.ER.24H PO SCH (09:00)
[2021-08-27] MEDS ORDERED: Aspirin Enteric Coated 81 MG Tablet PO SCH ×2 (09:00)
[2021-08-27] MEDS ORDERED: *HR* Rivaroxaban 10 MG TABLET PO SCH (09:00)
[2021-08-27] MEDS ORDERED: lisinopriL 20 MG TABLET PO SCH (09:00)
[2021-08-27 09:29] VITALS: BP 146/66; PULSE 61; O2SAT 98
== END 2021-08-27 13:40 | disposition home or self-care (01) | DRG 221 ==
LOC: INVDIALAB 06:07 → 2NNU 10:31
PROVIDERS: ADMIT Thoracic Surgery (Cardiothoracic Vascular Surgery); ATTEND Thoracic Surgery (Cardiothoracic Vascular Surgery)